=== PATIENT | male | born 1995 | race Caucasian/White ===

== ENCOUNTER 2016-05-25 17:32 | Emergency (ER) | payer OTHER ==
[2016-05-25 20:19] LABS: CALCIUM 8.4 mg/dL (8.5-10.1); CARBON DIOXIDE 36.3 mmol/L (21-32); CHLORIDE SERUM 103 mmol/L (98-107); GFR1 > 60 mL/min; GLUCOSE SERUM 68 mg/dL (74-106); POTASSIUM SERUM 3.7 mmol/L (3.5-5.1); SODIUM SERUM 143 mmol/L (136-145)
[2016-05-25 20:24] LABS: ALBUMIN 3.6 g/dL (3.4-5.0); ALKALINE PHOSPHATASE 89 U/L (46-116); ALT/SGPT 22 U/L (16-63); AST/SGOT 18 U/L (15-37); BILIRUBIN TOTAL 0.61 mg/dL (0.20-1.00); TOTAL PROTEIN, SERUM 6.6 g/dL (6.4-8.2)
[2016-05-25 20:25] LABS: BASOPHIL % 0.7 % (0-2); PLATELET COUNT 269 x10^3mcL (130-400); RED CELL DISTRIBUTION WIDTH 13.9 % (11.5-14.5)
[2016-05-25 20:31] LABS: microscopic required? NO
[2016-05-25 20:49] LABS: UA SPECIFIC GRAVITY 1.015 (1.005-1.035); urine erythrocyte NEGATIVE (NEGATIVE)
[2016-05-25 20:52] LABS: AMPHETAMINE QUAL UR POSITIVE (NEG <=1000)
[2016-05-25 22:08] VITALS: BP 119/64
== END 2016-05-25 22:08 | disposition home or self-care (01) ==
LOC: ED 17:32
PROVIDERS: Specialist
DX: F19.10 Other psychoactive substance abuse, uncomplicated (principal)
CPT/HCPCS: 80307; 83880; G0480; J7030

== ENCOUNTER 2016-07-23 17:17 | Emergency (ER) | payer OTHER ==
[~2016-07-23] VITALS: Ht 193 cm; Wt 72.6 kg
[2016-07-23 21:11] VITALS: BP 115/77
== END 2016-07-23 21:11 | disposition other institution (70) ==
LOC: ED 17:17
DX: S43.51XA Sprain of right acromioclavicular joint, initial encounter (principal); S09.90XA Unspecified injury of head, initial encounter; R00.0 Tachycardia, unspecified; Y35.811A Legal intervention involving manhandling, law enforcement official injured, initial encounter; Y93.89 Activity, other specified; Y92.89 Other specified places as the place of occurrence of the external cause; Y99.8 Other external cause status; F15.10 Other stimulant abuse, uncomplicated

== ENCOUNTER 2016-07-23 17:17 | Emergency (ER) | payer OTHER | END 2016-07-23 21:11 | disposition other institution (70) | LOC: ED 17:17 | DX: Z02.89 Encounter for other administrative examinations (principal) ==

== ENCOUNTER 2018-04-18 14:30 | Emergency (ER) | payer SELFPAY ==
[~2018-04-18] VITALS: Ht 190.5 cm; Wt 75.0 kg
[2018-04-18 14:38] VITALS: BP 133/89; Ht 190.5 cm; Wt 75.0 kg
== END 2018-04-18 16:16 | disposition left against medical advice (07) ==
LOC: ED 14:30
DX: Z53.21 Procedure and treatment not carried out due to patient leaving prior to being seen by health care provider (principal)